=== PATIENT | male | born 1990 | race Caucasian/White ===

== ENCOUNTER 2020-09-23 19:20 | Inpatient (IN) | payer SELFPAY ==
[2020-09-23 19:25] VITALS: BP 159/100; PULSE 91; RESP 20; TEMP 36.6; O2SAT 97; BMI 25.8
[2020-09-23 19:28] VITALS: BP 148/107; PULSE 79; RESP 18; O2SAT 97
--- NOTE | 2020-09-23 19:46 | XRR_ITS ---
PROCEDURE INFORMATION: Exam: XR Chest, 1 View Exam date and time: 09/23/2020 7:50 PM Age: 30 years old Clinical indication: Cough; Additional info: Cough, nausea, vomiting, diarrhea TECHNIQUE: Imaging protocol: XR of the chest Views: 1 view. COMPARISON: No relevant prior studies available. FINDINGS: Lungs: Unremarkable. No consolidation. Pleural space: Unremarkable. No pleural effusion. No pneumothorax. Heart/Mediastinum: Unremarkable. No cardiomegaly. Bones/joints: Unremarkable. XR/XR chest 1V portable [id number] IMPRESSION: No acute findings.
[2020-09-23 20:39] VITALS: BP 117/77; PULSE 80; RESP 18; O2SAT 92
[2020-09-23] MEDS: ondansetron 2 mg/ML SDV 2 mL 4 MG IVP (20:54)
[2020-09-23] MEDS: sodium chloride 0.9% 1,000 ML 999 ML IV (20:55)
[2020-09-23 21:07] LABS: Basophils % 0.4 %; Eosinophils % 0.1 %; Hematocrit 39.7 % (42.0-52.0); Hemoglobin 13.5 g/dL (11.7-16.6); Lymphocytes # 1.5 10^3/uL (0.8-4.8); Lymphocytes % 13.9 %; Mean Corpuscular Hemoglobin 29.3 pg (28.0-34.0); Mean Corpuscular Volume 86.3 fL (80-94); Mean Platelet Volume 9.9 fL (7.4-10.4); Monocytes # 0.8 10^3/uL (0.2-0.9); Monocytes % 6.9 %; Neutrophils # 8.67 10^3/uL (1.8-7.7); Neutrophils % 78.4 %; Nucleated Red Blood Cells % 0 %; Platelet Count 370 10^3/cmm (130-400); Red Cell Distribution Width 11.8 % (12.1-15.1)
[2020-09-23 21:29] LABS: Alanine Aminotransferase 26 U/L (0-41); Albumin Level 4.4 g/dL (3.5-5.2); Alkaline Phosphatase 62 IU/L (40-130); Anion Gap 16.2 (5-19); Aspartate Amino Transferase 14 U/L (0-40); Blood Urea Nitrogen 12 mg/dL (6-20); Calcium 9.3 mg/dL (8.5-10.5); Carbon Dioxide 26 mmol/L (22-29); Chloride 102 mmol/L (98-107); Globulin 2.1 g/dL (1.3-4.6); Glomerular Filtration Rate 133.3 mL/min (90-130); Glucose 104 mg/dL (65-115); Osmolality Calculated 292 mOsm/kg (285-295); Potassium 3.2 mmol/L (3.5-5.1); Sodium 141 mmol/L (136-145); Total Protein 6.5 g/dL (6.6-8.7)
[2020-09-23 21:36] LABS: Acetaminophen < 5.0 ug/mL (10-30); Alcohol Level < 10 mg/dL (0-10); Salicylate < 0.3 mg/dL (3-10)
[2020-09-23 22:08] LABS: SARS Covid-2 Antigen Negative (Negative)
[2020-09-23] MEDS: acetaminophen 325 mg Tablet 650 MG PO (22:29)
[2020-09-23] MEDS: hyDROXYzine 25 mg Capsule 50 MG PO (22:37)
--- NOTE | 2020-09-23 23:23 | PC.NURSE ---
Called report to SHARRI Chi in [facility]
[2020-09-24 00:14] VITALS: PULSE 78; RESP 18; O2SAT 96
[2020-09-24 00:18] VITALS: BP 146/92; PULSE 62; RESP 21; TEMP 37.1; O2SAT 96
--- NOTE | 2020-09-24 02:22 | W.ED.PSYCH ---
HPI - Psych General: Chief Complaint: Psychiatric Symptoms Stated Complaint: si,etoh History of Present Illness: MD complaint: suicidal ideation and feels depressed Onset (ago): day(s) Duration: constant History of same: Yes Exacerbating factors: drug use Context: recent alcohol abuse and recent drug abuse Associated psychiatric symptoms: depression, suicidal ideation and delusions Associated symptoms: Reports delusions; Deny auditory hallucinations or visual hallucinations Treatments prior to arrival: none If self harm: admits thoughts of self harm Review of Systems Const: Denies: fever(s) Eyes: Denies: change in vision ENMT: Denies: odynophagia, post nasal drip or sinus pain Card: Denies: chest pain, palpitations or irregular heart rhythm Resp: Denies: dyspnea, productive cough, non-productive cough or wheezing GI: Reports: nausea, vomiting and diarrhea; Denies: abdominal pain : Denies: difficulty urinating or hematuria Musc: Reports: back pain; Denies: neck pain Skin/Breast: Denies: rash or erythema Neuro: Denies: headache(s), dizziness or vertigo Psych: Denies: anxiety, visual hallucinations or auditory hallucinations Physical Exam Const: GENERAL APPEARANCE: well developed ORIENTATION/CONSCIOUSNESS: Yes oriented to person and Yes oriented to place; not oriented to time HENMT: COMMON NORMALS: normocephalic, external ears normal and Normal external nose present HEAD & SCALP: normocephalic FACE & SINUS: normal facial exam NOSE: Normal external nose present and No nasal discharge present EXTERNAL EAR: Yes external ears normal MOUTH: tongue normal THROAT: posterior oropharynx normal; no peritonsillar mass Eye: COMMON NORMALS: Equal, round and reactive pupils present, EOMs intact bilaterally and conjunctivae normal EYELID: eyelids normal CONJUNCTIVA: Yes conjunctivae normal PUPIL: Yes Equal, round and reactive pupils present Neck/C-Spine: GENERAL: No tracheal deviation Chest: COMMONS NORMALS: normal inspection of the chest CHEST: No tenderness Resp: COMMON NORMALS: clear to auscultation bilaterally EFFORT & INSPECTION: No tachypneic, No respiratory distress, No retractions, No uses accessory muscles and No tracheal deviation AUSCULTATION: clear to auscultation bilaterally, no rhonchi, no wheezes and lung sounds not diminished Cardio: COMMON NORMALS: regular rate and regular rhythm RATE: regular rate RHYTHM: regular rhythm HEART SOUNDS: no murmurs PERIPHERAL PULSES: radial pulses present GI: INSPECTION: No abdominal distension AUSCULTATION: No Hyperactive bowel sounds present and No Hypoactive bowel sounds present PALPATION: No Guarding due to palpation present (GI) and No Rigid due to palpation PERCUSSION: no dullness to percussion and no tympanic to percussion Neuro: SENSORIUM/ORIENTATION: Yes oriented to person, Yes oriented to place and No oriented to time Psych: COMMON NORMALS: speech normal APPEARANCE: Yes unkempt ATTITUDE: Yes paranoid, Yes Withdrawn affect present and Yes uncooperative ACTIVITY/MOTOR BEHAVIOR: Yes restless SPEECH: Yes normal speech MOOD & AFFECT: Yes depressed mood and Yes fearful THOUGHT PROCESS: Circumstantial thought process present and disorganized THOUGHT CONTENT: Yes Suicidality present and Yes delusions ATTENTION/CONCENTRATION: Yes attention grossly intact and Yes concentration grossly intact MEMORY/COGNITION: Yes memory grossly intact and Yes cognition grossly intact INSIGHT: Limited insight present (Psych) JUDGEMENT: Limited judgement present (Psych) MDM - Psych MDM Narrative: Medical decision making narrative: 50-year-old male who reports initially suicidal ideation, stating he wanted to cut himself to kill himself. He also states that he is been coming off of opiates and therefore sick with nausea and vomiting mainly with some belly cramping. He states that he is dehydrated. He admits to use of amphetamine salts and alcohol as well. He was told his potassium was little low, and that we needed to give him some potassium pills. He refused those, stating I do not feel comfortable taking those . He also stated I do not feel safe here, I do not think you guys are taking proper care of me . He was allowed to call his mother in [place], who seemed to help calm him down. He then proceeded to agree with admission. Orders been written. He is medically cleared. Lab Data: Labs: Lab Results 09/23/20 09/23/20 09/23/20 Range/Units 20:37 20:37 21:10 WBC 11.0 H (4.0-10.0) 10^3/ uL RBC 4.60 (4.1-5.3) 10^6/u L Hgb 13.5 (11.7-16.6) g/dL Hct 39.7 L (42.0-52.0) % MCV 86.3 (80-94) fL MCH 29.3 (28.0-34.0) pg MCHC 34.0 (30.0-36.0) g/dL RDW 11.8 L (12.1-15.1) % Plt Count 370 (130-400) 10^3/c mm MPV 9.9 (7.4-10.4) fL Neut % (Auto) 78.4 % Lymph % (Auto) 13.9 % [place] % (Auto) 6.9 % Eos % (Auto) 0.1 % Baso % (Auto) 0.4 % Neut # (Auto) 8.67 H (1.8-7.7) 10^3/u L Lymph # (Auto) 1.5 (0.8-4.8) 10^3/u L [place] # (Auto) 0.8 (0.2-0.9) 10^3/u L Eos # (Auto) 0.0 (0.0-0.8) 10^3/u L Baso # (Auto) 0.0 (0.0-0.1) 10^3/u L Nucleated RBC % (a uto) 0 % Nucleated RBCs # 0.0 /100WBC Sodium 141 (136-145) mmol/L Potassium 3.2 L (3.5-5.1) mmol/L Chloride 102 (98-107) mmol/L Carbon Dioxide 26 (22-29) mmol/L Anion Gap 16.2 (5-19) BUN 12 (6-20) mg/dL Creatinine 0.7 (0.7-1.2) mg/dL GFR Calculation 133.3 H (90-130) mL/min Glucose 104 (65-115) mg/dL Calculated Osmolal ity 292 (285-295) mOsm/k g Calcium 9.3 (8.5-10.5) mg/dL Total Bilirubin 1.0 (0.15-1.2) mg/dL AST 14 (0-40) U/L ALT 26 (0-41) U/L Alkaline Phosphata se 62 (40-130) IU/L Total Protein 6.5 L (6.6-8.7) g/dL Albumin 4.4 (3.5-5.2) g/dL Globulin 2.1 (1.3-4.6) g/dL Salicylates < 0.3 L (3-10) mg/dL Acetaminophen < 5.0 L (10-30) ug/mL Ethyl Alcohol < 10 (0-10) mg/dL SARS-CoV-2 Ag (Rap id) Negative (Negative) Discharge Plan Discharge Patient Disposition: Admitted As Inpatient Admit Provider: Michael Dunham Clinical Impression: Suicidal ideation, Polysubstance abuse Condition: Stable Coding Level of Care Code ED Binding Machine Operator for Chg Fwd Exam Comprehensive
[2020-09-24] MEDS: trazodone 50 mg Tablet PO ×2 (02:34→20:46)
[2020-09-24] MEDS: OLANZapine 5 mg ODT PO (02:34)
[2020-09-24] MEDS: hyDROXYzine 25 mg Capsule 50 MG PO ×2 (02:34→20:46)
[2020-09-24] MEDS: ondansetron 4 MG Tablet PO (02:35)
--- NOTE | 2020-09-24 02:38 | PC.NURSE ---
Skin assessment revealed no wounds or injuries.
--- NOTE | 2020-09-24 02:50 | PC.NURSE ---
Pm assessment 30-year-old male who reports initially suicidal ideation, stating he wanted to cut himself to kill himself. He also states that he is been coming off of opiates and therefore sick with nausea and vomiting mainly with some belly cramping. . Pt states, I am withdrawing, I normally take at least 5 of the Percocet 30mg pills a day. I couldn't get any. Pt confirmed the use of Meth and alcohol. In ED, pt stated I do not feel safe here, I do not think you guys are taking proper care of me . He was allowed to call his mother in [place], who seemed to help calm him down. He then proceeded to agree with admission to [facility]. On arrival to the unit, pt is irritable and refused to sign his admission paperwork. Staff was only able to get his signature for consent to treat. Pt Potassium level is low at 3.2.and he refused to take oral potassium stating I do not feel comfortable taking those . Pt is easily angered and only seems to respond when reasoned with. When he arrived on the unit, the patient laid on the bench with a blanket, stated he wanted to lay down, he needed a medical detox, Staff was able to take the patient to his room, get the skin assessment, and change him from the hospital gown to green scrubs without incident. Pt did not provide UDS. It is unclear what other substances pt may have used at this point.
--- NOTE | 2020-09-24 02:56 | PC.NURSE ---
The patient was irritable, calling out from room. Patient feeling agitated. Also complained of nausea. Zyprexa 5 mg po given for the agitation. Zofran 4 mg po given for the nausea. Vistaril 50 mg po given for anxiety. Trazodone 50 mg po given for insomnia. Med teaching for the four meds completed prior to administration. The patient verbalized understanding of the meds.
[2020-09-24 06:00] VITALS: BP 158/101; PULSE 65; RESP 19; TEMP 37.7; O2SAT 97
[2020-09-24 14:00] VITALS: BP 148/108; PULSE 76; RESP 18; TEMP 37.6; O2SAT 96
[2020-09-24] MEDS: nicotine 21 mg Patch 1 PATCH TRANSDERMA (14:34)
[2020-09-24 15:02] VITALS: BP 148/108
[2020-09-24] MEDS: cloNIDine 0.1 mg Tablet PO ×2 (15:02→20:46)
[2020-09-24] MEDS: LORazepam 2 mg Tablet PO (17:12)
--- NOTE | 2020-09-24 17:12 | PC.NURSE ---
Addendum entered by Chiara Albright LPN 09/24/20 17:54: REASSESS-CIWA SCORE NOW A 1, PT RESTING IN BED QUIETLY Original Note: CIWA SCORE 11 PT C/O NOT FEELING WELL STATED HE FELT LIKE HE MIGHT PASS OUT PT ESCORTED BACK TO HIS ROOM TO HIS BED, ELEVATED HR 130, BP 151/116
--- NOTE | 2020-09-24 18:36 | PM.NHP ---
Providers/Chief Complaint Admitting Physician: Michael Dunham MD Chief Complaint: si,etoh HPI N[facility] History of Present Illness Yonatan Issa is a 30 year old male who presented to the emergency department with the following report: Chief Complaint: Psychiatric Symptoms Stated Complaint: si,etoh History of Present Illness: MD complaint: suicidal ideation and feels depressed Onset (ago): day(s) Duration: constant History of same: Yes Exacerbating factors: drug use Context: recent alcohol abuse and recent drug abuse Associated psychiatric symptoms: depression, suicidal ideation and delusions Associated symptoms: Reports delusions; Deny auditory hallucinations or visual hallucinations Treatments prior to arrival: none If self harm: admits thoughts of self harm. He was admitted to the neuropsychiatric unit for definitive treatment of those issues. He presents today reporting that he is never had any psychiatric hospitalization in the past. He denies any outpatient follow-up to any significant degree. To the past suicide attempts his response was not yet. He reports smoking about a pack of cigarettes a day, daily alcohol use anywhere from 3 drinks to intoxicated with a possible average of a sixpack, regular monthly marijuana use, regular opiate use in the past and currently. He has been in rehab 3 times in the past but denies any DUIs. He later endorsed a history of ADHD with some possible treatment in the past presenting reporting that he is certain that the FBI is watching him. He reports that he knows that his is setting him up and he described situations on his phone that convinces him that he is being followed. He reports that he was a Division I college scholarship recipient but during his freshman year his sister and everything changed. We discussed the risk benefits and alternatives of assisting him with his withdrawal with clonidine, continuing the CIWA, likely adding Seroquel for both withdrawal and his paranoia as a temporary medication and possibly following that up tomorrow once we see how he is doing with Prozac for the depression and he understood and agreed to proceed as is documented in this note. Psychiatric history: As above. Substance abuse history: As above. Family history: He denies history of mental health or addiction issues that run in the family or suicide attempts or completions but he was also not clear about the circumstances surrounding his sister's . Developmental history: He denies issues with his mother's or or delivery, he reports he learned to walk and talk and met his developmental milestones on time, he does endorse having some speech therapy but denies learning support, emotional support or special education classes. Psychosocial history: Mother and father were together when he was born and he endorses that there were 6 children in the family he is the youngest of 3 boys and 3 girls. Endorses childhood was great and denied any emotional, physical or sexual abuse. He graduated from high school and did go on to college on a division 1 full scholarship. He is a heterosexual with his longest relationship being 4 years. He has been 1 time and is in a divorce process currently, he has a 3-year-old and a 1-year-old son, has never been in the reports he was raised Nondenominational. 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 He reports that he will be living in a house with his parents upon discharge. Legal history: He has been in prison 1 time overnight. Medical history: He denies any significant issues. Meds NPU Home Medications Medication Instructions Recorded Confirmed Last Taken Type No Known Home Medications 09/23/20 09/23/20 Unknown History Allergies Allergy/AdvReac Type Severity Reaction Status Date / Time No Known Allergies Allergy Verified 09/23/20 19:25 Mental Status Exam MSE Comments: This is a well-nourished, well-developed white male with hospital scrubs on and limited grooming and eye contact. No abnormal movements except for psychomotor agitation. Cooperative with exam in moderate distress likely from his withdrawal. Speech was decreased rate normal volume. Mood described as okay, affect irritable and guarded. Thought process organized. Thought content: Patient denied suicidal or homicidal ideation, there were no delusions reported but clear paranoia endorsed, he denied auditory or visual hallucinations. Attention and concentration were limited and memory was mostly reliable but none were formally tested. He is alert and oriented x3. Insight and judgment are impaired, impulse control is impaired. Vitals/I&O/Wt Last Vital Signs Temp 100.8 F H 09/24/20 20:10 Pulse 74 09/24/20 20:10 Resp 17 09/24/20 20:10 BP 156/104 09/24/20 20:10 Pulse Ox 99 09/24/20 20:10 Weight last 48 hrs Weight 81.647 kg Data N[facility] : 09/23/20 20:37 09/23/20 20:37 A&P Assessment and plan (1) Depression: Status: Acute (2) Bereavement: Status: Acute (3) Marital/partner relational problem: Status: Acute (4) Opiate withdrawal: Status: Acute (5) Alcohol withdrawal: Status: Acute (6) Psychosis: Status: Acute (7) Suicidal ideation: Status: Acute (8) Polysubstance abuse: Status: Acute Additional A&P Information This is a 89-year-old male with a long history of addiction and addiction treatment with limited history of mental health treatment with clear trauma from the loss of his sister around age 19 who presents in active withdrawal, with paranoia, depression and suicidal thinking. 1. Continue current medication. We will use a combination of clonidine as needed and CIWA protocol and possibly add other medications to assist in his withdrawal and consider medication for depression tomorrow. 2. Continue every 15 minute checks for safety. 3. Continue CIWA protocol. 4. Encourage individual, group and milieu therapy. 5. Encourage sober living treatments after discharge at the highest level of care to which he is willing to commit. Involuntary Hold Information 96 Hour Hold: 96 Hour Involuntary Admission: No Attestations [facility] Medical Necessity Statement*: Inpatient hospitalization is medically necessary and the clinically appropriate intervention at this time. We will monitor medications and make changes as indicated. Patient will be in the hospital for overnight. Likely length of stay 3 to 5 days. Coding Level of Care Code Acute Measurement Coordinator for Rajan Garner Diagnoses Depression F32.9 Bereavement Z63.4 Marital/partner relational problem Z63.0 Opiate withdrawal F11.23 Alcohol withdrawal F10.239 Psychosis F29 Suicidal ideation R45.851 Polysubstance abuse F19.10
[2020-09-24 20:10] VITALS: BP 156/104; PULSE 74; RESP 17; TEMP 38.2; O2SAT 99
--- NOTE | 2020-09-24 21:38 | PC.NURSE ---
PM ASSESSMENT PT IS SLEEPING AND DOES NOT WANT TO BE DISTURBED AT THIS TIME. PT DENIES PAIN. DENIES AH/VH. DENIES SI/HI. PT TEMPERATURE IS INCREASED. THIS MORNING TEMPERATURE WAS 100.2 TRENDING UP TO 100.8 THIS EVENING. BLOOD PRESSURE IS ELEVATED 156/104 TRENDING DOWNWARD FROM 161/116. PT IS IRRITABLE AND SPEECH IS UNCLEAR. HEART/LUNG SOUNDS ARE WNL. WILL CONTINUE TO MONITOR THIS PATIENT FOR ANY FURTHER S/S OF INFECTION.
--- NOTE | 2020-09-25 05:36 | PC.NURSE ---
CIWA 10/PRNS Pt is nauseated, BP 160/127, MS 113, RR 18. Pt has moderate trembling with arms extended and eyes shut. Pt is diaphoretic, sensitive to light/sound. Mildly irritable. Pt reports nausea without vomiting. Notified med nurse to obtain zofran 4mg po for nausea, clonidine 0.1mg PO for BP, and ativan 2mg PO for withdrawl from alcohol. Pt is awake but in definite need or relief from withdrawl s/s/ at this time. Will continue to monitor pt for progress.
[2020-09-25] MEDS: cloNIDine 0.1 mg Tablet PO ×2 (05:42→14:27)
[2020-09-25] MEDS: LORazepam 2 mg Tablet PO ×3 (05:43→20:49)
[2020-09-25 05:44] VITALS: BMI 22.9
[2020-09-25] MEDS: ondansetron 4 MG Tablet PO (05:44)
--- NOTE | 2020-09-25 05:48 | PC.NURSE ---
The patient complained of nausea, muscle cramping. Given Clonidine 0.1 mg po and Zofran 4 mg po. CIWA=10. Given Ativan 2 mg po. Encouraged po fluids. Fluids provided at bedside.
--- NOTE | 2020-09-25 05:57 | PC.NURSE ---
Drug use Pt states that he typically smokes 5-10 percocet 30mg, eats methamphetamine salts, and drinks to excess. Pt is from [place]. He came to [place] with his who recently left him and took the children when she relocated to the [facility]. Pt states, I was sober for over ten years, she left, and I said fuck it. Pt admits to using before admission. Nurse requested pt to provide UDS, urine specimen cup left at bedside. Pt has a fear of sharing information with the [employer] . Pt did sign his paperwork for admission to the [facility] unit this morning. He seems pleasant this morning. This is a definite improvement from his admission time. He is somewhat anxious, sweating, blood pressure is elevated, heart rate is elevated, and he is attempting to rest. Med nurse notified, pt received medication to help while he is withdrawing. Will continue to monitor for any increase s/s of withdrawl.
[2020-09-25 06:00] VITALS: BP 160/127; PULSE 113; RESP 18; TEMP 37; O2SAT 97
[2020-09-25] MEDS: nicotine 2 mg Gum BUCCAL ×2 (06:40→09:23)
[2020-09-25] MEDS: folic acid 1 mg Tablet PO (09:24)
[2020-09-25] MEDS: multivitamin therapeutic Tablet 1 TAB PO (09:24)
[2020-09-25] MEDS: thiamine 100 mg Tablet PO (09:24)
--- NOTE | 2020-09-25 09:41 | PC.NURSE ---
CIWA ADMINISTERED ATIVAN 2 MG PO PER CIWA PROTOCOL. WILL MONITOR FOR MEDICATION EFFECTIVENESS.
[2020-09-25 14:00] VITALS: BP 160/111; PULSE 102; RESP 16; TEMP 36.8; O2SAT 98
[2020-09-25 14:27] VITALS: BP 160/111
[2020-09-25] MEDS: fluoxetine 20 mg Capsule PO (14:27)
[2020-09-25] MEDS: hyDROXYzine 25 mg Capsule 50 MG PO ×2 (15:59→20:43)
[2020-09-25] MEDS: nicotine 21 mg Patch 1 PATCH TRANSDERMA (16:03)
--- NOTE | 2020-09-25 16:32 | PM.NPN ---
Subjective NPU Subjective: Interval history: Yonatan presents today continuing to be in significant distress from his withdrawal, paranoia and depression. He does endorse that the clonidine was helpful. We discussed addition of as needed Seroquel for withdrawal and psychosis temporarily. We once again reviewed the risk benefits and alternatives of starting Prozac and he understood and agreed proceed as is documented in his note. He is very appreciative and reports that he feels like things are slowly getting better. Mental Status Exam MSE Comments: This is a well-nourished, well-developed white male with hospital scrubs on and improving grooming and eye contact. No abnormal movements except for psychomotor retardation. Cooperative with exam in mild distress. Speech was decreased rate normal volume. Mood described as okay, affect less irritable and guarded. Thought process organized. Thought content: Patient denied suicidal or homicidal ideation, there were no delusions reported but clear paranoia endorsed, he denied auditory or visual hallucinations. Attention and concentration were limited and memory was mostly reliable but none were formally tested. He is alert and oriented x3. Insight and judgment are impaired, but improving impulse control is impaired. Vitals/I&O/Wt Last Vital Signs Temp 97.5 F L 09/25/20 19:47 Pulse 85 09/25/20 19:47 Resp 18 09/25/20 19:47 BP 123/80 09/25/20 19:47 Pulse Ox 99 09/25/20 19:47 Weight last 48 hrs Weight 72.575 kg Data N[facility] : 09/23/20 20:37 09/23/20 20:37 A&P Additional A&P Information (1) Depression: (2) Bereavement: (3) Marital/partner relational problem: (4) Opiate withdrawal: (5) Alcohol withdrawal: (6) Psychosis: (7) Suicidal ideation: (8) Polysubstance abuse: This is a 89-year-old male with a long history of addiction and addiction treatment with limited history of mental health treatment with clear trauma from the loss of his sister around age 19 who presents in active withdrawal, with paranoia, depression and suicidal thinking. 1. Continue current medication. Add Seroquel as needed and Prozac 20 mg p.o. every morning 2. Continue every 15 minute checks for safety. 3. Continue CIWA protocol. 4. Encourage individual, group and milieu therapy. 5. Encourage sober living treatments after discharge at the highest level of care to which he is willing to commit. Involuntary Hold Information 96 Hour Hold: 96 Hour Involuntary Admission: No Attestations NPU Medical Necessity Statement*: Inpatient hospitalization is medically necessary and the clinically appropriate intervention at this time. We will monitor medications and make changes as indicated. Likely length of stay 2-4 days. Coding Level of Care Code Acute Enterostomal Therapy Nurse for Rajan Garner
[2020-09-25 19:47] VITALS: BP 123/80; PULSE 85; RESP 18; TEMP 36.4; O2SAT 99
[2020-09-25] MEDS: trazodone 50 mg Tablet PO (20:43)
[2020-09-26 06:00] VITALS: BP 147/105; PULSE 87; RESP 18; TEMP 37.2; O2SAT 98
[2020-09-26] MEDS: folic acid 1 mg Tablet PO (07:51)
[2020-09-26] MEDS: multivitamin therapeutic Tablet 1 TAB PO (07:51)
[2020-09-26] MEDS: fluoxetine 20 mg Capsule PO (07:51)
[2020-09-26] MEDS: thiamine 100 mg Tablet PO (07:51)
[2020-09-26] MEDS: nicotine 2 mg Gum BUCCAL (10:18)
[2020-09-26 14:00] VITALS: BP 143/98; PULSE 92; RESP 18; TEMP 37.4; O2SAT 97
--- NOTE | 2020-09-26 17:09 | P.PN_ITS ---
Subjective NPU Subjective: Interval history: Yonatan presents today reporting that he is struggling with the fact that his mom is demanding a certain brand of treatment but he reports he does have a plan of how to proceed. He is working with treatment team for appropriate follow-up and we discussed the likelihood of discharge in the next 48 hours as his withdrawal and his depression improve and his psychosis begins to resolve. He reports he is eating and sleeping okay. Mental Status Exam MSE Comments: This is a well-nourished, well-developed white male with hospital scrubs on and improving grooming and eye contact. No abnormal movements except for psychomotor retardation. Cooperative with exam in mild distress. Speech was decreased rate normal volume. Mood described as a little better, affect less irritable and guarded. Thought process organized. Thought content: Patient denied suicidal or homicidal ideation, there were no delusions reported but clear paranoia endorsed, he denied auditory or visual hallucinations. Attention and concentration were limited and memory was mostly reliable but none were formally tested. He is alert and oriented x3. Insight and judgment are improving impulse control is impaired. Vitals/I&O/Wt Last Vital Signs Temp 98.2 F 09/26/20 14:00 Pulse 113 H 09/26/20 14:00 Resp 18 09/26/20 14:00 BP 160/111 09/26/20 14:00 Pulse Ox 97 09/26/20 14:00 Data NPU : 09/23/20 20:37 09/23/20 20:37 A&P Additional A&P Information (1) Depression: (2) Bereavement: (3) Marital/partner relational problem: (4) Opiate withdrawal: (5) Alcohol withdrawal: (6) Psychosis: (7) Suicidal ideation: (8) Polysubstance abuse: This is a 89-year-old male with a long history of addiction and addiction castro tment with limited history of mental health treatment with clear trauma from the loss of his sister around age 19 who presents in active withdrawal, with paranoia, depression and suicidal thinking. 1. Continue current medication. Earlier trauma my life and 2. Continue every 15 minute checks for safety. 3. Continue CIWA protocol. 4. Encourage individual, group and milieu therapy. 5. Encourage sober living treatments after discharge at the highest level of care to which he is willing to commit. Involuntary Hold Information 96 Hour Hold: 96 Hour Involuntary Admission: No Attestations NPU Medical Necessity Statement*: Inpatient hospitalization is medically necessary and the clinically appropriate intervention at this time. We will monitor medications and make changes as indicated. Likely length of stay 1-3 days. Coding Level of Care Code Acute Crop Production Advisor for Rajan Garner
[2020-09-26] MEDS: LORazepam 2 mg Tablet PO (20:08)
[2020-09-26] MEDS: trazodone 50 mg Tablet PO (20:08)
[2020-09-26] MEDS: loperamide 2 mg Capsule PO (20:08)
[2020-09-26] MEDS: hyDROXYzine 25 mg Capsule 50 MG PO (20:08)
[2020-09-26 21:34] VITALS: BP 153/98; PULSE 78; RESP 18; TEMP 37.5; O2SAT 97
--- NOTE | 2020-09-26 23:24 | PC.NURSE ---
PM assessment Pt is in his room resting. Pt denies AH/VH. Denies SI/HI. pt informed nurse that he is having diarrhea and abdominal pain accompanied by nausea. Pt is talkative with staff and cooperative at this time. Blood pressure is elevated at 153/98 and Temperature is 99.5. Will continue to monitor patient for any s/s of infection or emotional distress. Med nurse notified of pt need for medication.
[2020-09-27 06:00] VITALS: BP 160/108; PULSE 80; RESP 18; TEMP 36.5; O2SAT 96
[2020-09-27] MEDS: multivitamin therapeutic Tablet 1 TAB PO (08:10)
[2020-09-27] MEDS: thiamine 100 mg Tablet PO (08:10)
[2020-09-27] MEDS: folic acid 1 mg Tablet PO (08:10)
[2020-09-27] MEDS: fluoxetine 20 mg Capsule PO (08:10)
[2020-09-27] MEDS: nicotine 2 mg Gum BUCCAL (08:37)
--- NOTE | 2020-09-27 13:15 | PM.NDC ---
Diagnoses at Discharge Discharge Diagnosis (1) Depression: Status: Acute (2) Bereavement: Status: Acute (3) Marital/partner relational problem: Status: Acute (4) Opiate withdrawal: Status: Acute (5) Alcohol withdrawal: Status: Acute (6) Psychosis: Status: Acute (7) Suicidal ideation: Status: Resolved (8) Polysubstance abuse: Status: Acute Reason for Visit Reason for Visit: si,etoh Brief History: History of Present Illness Yonatan Issa is a 30 year old male who presented to the emergency department with the following report: Chief Complaint: Psychiatric Symptoms Stated Complaint: si,etoh History of Present Illness: MD complaint: suicidal ideation and feels depressed Onset (ago): day(s) Duration: constant History of same: Yes Exacerbating factors: drug use Context: recent alcohol abuse and recent drug abuse Associated psychiatric symptoms: depression, suicidal ideation and delusions Associated symptoms: Reports delusions; Deny auditory hallucinations or visual hallucinations Treatments prior to arrival: none If self harm: admits thoughts of self harm. He was admitted to the neuropsychiatric unit for definitive treatment of those issues. He presents today reporting that he is never had any psychiatric hospitalization in the past. He denies any outpatient follow-up to any significant degree. To the past suicide attempts his response was not yet. He reports smoking about a pack of cigarettes a day, daily alcohol use anywhere from 3 drinks to intoxicated with a possible average of a sixpack, regular monthly marijuana use, regular opiate use in the past and currently. He has been in rehab 3 times in the past but denies any DUIs. He later endorsed a history of ADHD with some possible treatment in the past presenting reporting that he is certain that the FBI is watching him. He reports that he knows that his is setting him up and he described situations on his phone that convinces him that he is being followed. He reports that he was a [employer] I college scholarship recipient but during his freshman year his sister and everything changed. We discussed the risk benefits and alternatives of assisting him with his withdrawal with clonidine, continuing the CIWA, likely adding Seroquel for both withdrawal and his paranoia as a temporary medication and possibly following that up tomorrow once we see how he is doing with Prozac for the depression and he understood and agreed to proceed as is documented in this note. Psychiatric history: As above. Substance abuse history: As above. Family history: He denies history of mental health or addiction issues that run in the family or suicide attempts or completions but he was also not clear about the circumstances surrounding his sister's . Developmental history: He denies issues with his mother's or or delivery, he reports he learned to walk and talk and met his developmental milestones on time, he does endorse having some speech therapy but denies learning support, emotional support or special education classes. Psychosocial history: Mother and father were together when he was born and he endorses that there were 6 children in the family he is the youngest of 3 boys and 3 girls. Endorses childhood was great and denied any emotional, physical or sexual abuse. He graduated from high school and did go on to college on a division 1 full scholarship. He is a heterosexual with his longest relationship being 4 years. He has been 1 time and is in a divorce process currently, he has a 3-year-old and a 1-year-old son, has never been in the reports he was raised [employer]. 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 He reports that he will be living in a house with his parents upon discharge. Legal history: He has been in care home 1 time overnight. Medical history: He denies any significant issues. Hospital Course Hospital Course Yonatan presented to the emergency department reporting depression and suicidal thoughts. He was having active addiction and not able to contract for safety. He was admitted to the neuropsychiatric unit for definitive treatment of those issues. On the unit he slowly acclimated to the individual, group and milieu therapies provided. He was started on Prozac and trazodone as well as being placed on the CIWA protocol as well as medications for opiate withdrawal. He responded well to these medications. Ultimately he was connected with his family and work with the treatment team to get sober living treatment in place. He was able to contract for safety prior to discharge. During the hospitalization, patient had routine laboratory studies which were within normal limits except for few outliers. Additionally there was a general medical evaluation which was also within normal limits and revealed no new acute processes. Discharge Summary: At the time of discharge, he was absent psychosis and lethality. Mood and anxiety were well managed. Patient endorsed a plan to avoid all drugs of abuse and follow-up with the aftercare recommendations of the treatment team. Patient was evaluated and deemed to be absent credible lethality, and had achieved the maximum benefit from an inpatient hospitalization, so was discharged. Involuntary Hold Information 96 Hour Hold: 96 Hour Involuntary Admission: No Mental Status Exam MSE Comments: This is a well-nourished, well-developed white male with hospital scrubs on and improving grooming and eye contact. No abnormal movements. Cooperative with exam in no acute distress. Speech was more normal rate and volume. Mood described as better, affect brighter. Thought process organized. Thought content: Patient denied suicidal or homicidal ideation, there were no delusions reported but clear paranoia endorsed, he denied auditory or visual hallucinations. Attention and concentration were intact and memory was reliable but none were formally tested. He is alert and oriented x3. Insight and judgment are improving impulse control is improving. Discharge Data Data Completed and Pending: Completed Studies During Hospitalization Category Date Time Status XR chest 1V oralia ble 65532 Urgent Exams 09/23/20 19:46 Completed Vitals: Last Vital Signs Temp 97.7 F 09/27/20 13:36 Pulse 80 09/27/20 13:36 Resp 18 09/27/20 13:36 BP 160/108 09/27/20 13:36 Pulse Ox 96 09/27/20 13:36 Discharge Plan Discharge Patient Disposition: Home Condition: Stable Prescriptions: New trazodone 50 mg Tablet 50 mg PO BEDTIME PRN (Reason: Sleep) 30 Days Qty: 30 RF: 1 folic acid 1 mg Tablet 1 mg PO DAILY 30 Days Qty: 30 RF: 1 fluoxetine 20 mg Capsule 20 mg PO DAILY 30 Days Qty: 30 RF: 1 Vitamin B-1 (mononitrate) 100 mg Tablet 100 mg PO DAILY 30 Days Qty: 30 RF: 1 Discharge Orders: Discharge Order (Routine); Ordered 09/27/20 Ordered By: Michael Dunham Referrals: [facility] [Other] (Closes at 8pm, mom is supposed to call them ahead of time.) [facility] [Other] (They have a free side and a side that I believe is $10 a night) Discharge Diet: Regular Discharge Activity: Resume usual activity Patient Instructions: Alcoholism, Alcohol Withdrawal, Chlordiazepoxide (By mouth), Clonidine (By mouth), Fluoxetine (By mouth), Trazodone (By mouth), Thiamine (Vitamin B-1) (By mouth), Folic Acid (By mouth), Quetiapine (By mouth), Narcotic Abuse (DC), Brief Psychotic Disorder (DC) Activity Restrictions/Additional Instructions: Near [email or web address] [phone] [address] [place] [address] should see from [email or web address] [phone] [place] [address] [address] from [facility] [employer] [phone] Also has [employer] and [employer] Discharge Attestations NPU Time Spent in Discharge Care*: less than 30 min Specific Discharge Activities: Specific discharge activities: educating patient, discussing with casework specialist/social workers/dc planners, documenting/other paperwork and evaluating patient/reviewing data Coding Level of Care Code Acute Attending Anesthesiologist for g Fwd Diagnoses Depression F32.9 Bereavement Z63.4 Marital/partner relational problem Z63.0 Opiate withdrawal F11.23 Alcohol withdrawal F10.239 Psychosis F29 Suicidal ideation R45.851 Polysubstance abuse F19.10
[2020-09-27 13:28] VITALS: BP 160/108; PULSE 80; RESP 18; TEMP 36.5; O2SAT 96
[2020-09-27 13:36] VITALS: BP 160/108; PULSE 80; RESP 18; TEMP 36.5; O2SAT 96
== END 2020-09-27 16:39 | disposition home or self-care (01) | DRG 885 ==
LOC: ER 19:45 → NP 22:48
PROVIDERS: Admitting Provider Psychiatry & Neurology Psychiatry; Emergency Provider Emergency Medicine; Visit Provider Psychiatry & Neurology Psychiatry
DX: F29 Unspecified psychosis not due to a substance or known physiological condition (principal); R45.851 Suicidal ideations; F10.139 Alcohol abuse with withdrawal, unspecified; F11.13 Opioid abuse with withdrawal; F32.9 Major depressive disorder, single episode, unspecified; Z63.4 Disappearance and death of family member; Z63.0 Problems in relationship with spouse or partner; F17.210 Nicotine dependence, cigarettes, uncomplicated; F12.10 Cannabis abuse, uncomplicated
CPT/HCPCS: 12345; 71045; 80053; 80307; 85025; 87426; 99284; J2405; J7030; Q0162